=== PATIENT | male | born 1975 | race Caucasian/White ===

== ENCOUNTER 2022-03-26 13:19 | Emergency (ER) | payer MEDICAID ==
[2022-03-26] MEDS ORDERED: Ketorolac 30 MG/ML SDV IM ONE (16:24)
== END 2022-03-26 17:56 | disposition home or self-care (01) ==
LOC: JP.ED 13:19
DX: R10.9 Unspecified abdominal pain (principal); R53.81 Other malaise; R53.83 Other fatigue; Z88.0 Allergy status to penicillin; Z88.8 Allergy status to other drugs, medicaments and biological substances; Z88.5 Allergy status to narcotic agent; Z72.0 Tobacco use
CPT/HCPCS: 36415; 74019; 80053; 81001; 82272; 85025; 86140; 87177; 87209; 89055; 96372; 99284; J1885; 99282

== ENCOUNTER 2024-05-08 11:52 | Emergency (ER) | payer MEDICAID ==
[2024-05-08 13:12] LABS: AMPHETAMINES SCREEN, URINE NEGATIVE (NEGATIVE); BARBITURATE SCREEN,URINE NEGATIVE (NEGATIVE); BENZODIAZEPINES SCREEN,URINE NEGATIVE (NEGATIVE); METHADONE SCREEN, URINE NEGATIVE (NEGATIVE); METHAMPHETAMINES SCREEN, URINE NEGATIVE (NEGATIVE); OXYCODONE SCREEN,URINE NEGATIVE (NEGATIVE); PROPOXYPHENE SCREEN,URINE NEGATIVE (NEGATIVE); THC SCREEN,URINE 50 NG/ML PRESUMPTIVE POSITIVE (NEGATIVE)
== END 2024-05-08 15:32 | disposition home or self-care (01) ==
LOC: JP.ED 11:52
DX: R44.0 Auditory hallucinations (principal); Z88.0 Allergy status to penicillin; Z88.8 Allergy status to other drugs, medicaments and biological substances; Z79.899 Other long term (current) drug therapy
CPT/HCPCS: 80305-QW; 99284